=== PATIENT | female | born 1995 | race Caucasian/White ===

== ENCOUNTER → 2020-06-14 10:25 | Outpatient (BNVA) | payer BC, SELFPAY | PROVIDERS: Family Provider Nurse Practitioner; Visit Provider Obstetrics & Gynecology | DX: Z34.90 Encounter for supervision of normal pregnancy, unspecified, unspecified trimester (principal) | CPT/HCPCS: 81025 ==

== ENCOUNTER → 2020-06-21 09:06 | Outpatient (BNVA) | payer BC, SELFPAY | PROVIDERS: Family Provider Nurse Practitioner; Visit Provider Nurse Practitioner Women's Health | DX: O09.291 Supervision of pregnancy with other poor reproductive or obstetric history, first trimester (principal) | CPT/HCPCS: 84315; 84702 ==

== ENCOUNTER → 2020-07-31 14:29 | Outpatient (BNVA) | payer BC, SELFPAY | PROVIDERS: Family Provider Nurse Practitioner; Visit Provider Obstetrics & Gynecology | DX: Z34.90 Encounter for supervision of normal pregnancy, unspecified, unspecified trimester (principal) | CPT/HCPCS: 80307; 82950; 84315; 85027; 86592; 86762; 86803; 86850; 86900; 87086; 87340; 87806 ==

== ENCOUNTER → 2020-08-02 09:10 | Outpatient (BNVA) | payer BC, SELFPAY | PROVIDERS: Family Provider Nurse Practitioner; Visit Provider Obstetrics & Gynecology | DX: Z34.80 Encounter for supervision of other normal pregnancy, unspecified trimester (principal) | CPT/HCPCS: 80053; 82570; 84156; 84443 ==

== ENCOUNTER → 2020-08-07 15:35 | Outpatient (BNVA) | payer BC, SELFPAY | PROVIDERS: Family Provider Nurse Practitioner; Visit Provider Obstetrics & Gynecology | DX: O09.291 Supervision of pregnancy with other poor reproductive or obstetric history, first trimester (principal); Z3A.00 Weeks of gestation of pregnancy not specified | CPT/HCPCS: 84315; 87491; 87591; 88175 ==

== ENCOUNTER → 2020-09-01 08:11 | Outpatient (BNVA) | payer BC, SELFPAY | PROVIDERS: Family Provider Nurse Practitioner; Visit Provider Nurse Practitioner Women's Health | DX: O99.212 Obesity complicating pregnancy, second trimester (principal); O09.291 Supervision of pregnancy with other poor reproductive or obstetric history, first trimester; O09.299 Supervision of pregnancy with other poor reproductive or obstetric history, unspecified trimester | CPT/HCPCS: 84156; 84315 ==

== ENCOUNTER → 2020-11-27 13:06 | Outpatient (BNVA) | payer BC, SELFPAY | PROVIDERS: Family Provider Nurse Practitioner; Visit Provider Obstetrics & Gynecology | DX: Z34.90 Encounter for supervision of normal pregnancy, unspecified, unspecified trimester (principal) | CPT/HCPCS: 82950; 84315; 85025 ==

== ENCOUNTER → 2020-11-30 08:05 | Outpatient (BNVA) | payer BC, SELFPAY | PROVIDERS: Family Provider Nurse Practitioner; Visit Provider Obstetrics & Gynecology | DX: Z34.80 Encounter for supervision of other normal pregnancy, unspecified trimester (principal) | CPT/HCPCS: 82951; 82952 ==

== ENCOUNTER → 2020-12-27 09:32 | Outpatient (BNVA) | payer MEDICAID, SELFPAY | PROVIDERS: Family Provider Nurse Practitioner; Visit Provider Obstetrics & Gynecology | DX: Z34.80 Encounter for supervision of other normal pregnancy, unspecified trimester (principal) | CPT/HCPCS: 81000 ==

== ENCOUNTER → 2021-01-09 14:15 | Outpatient (BNVA) | payer MEDICAID, SELFPAY | PROVIDERS: Family Provider Nurse Practitioner; Visit Provider Nurse Practitioner Women's Health | DX: Z34.80 Encounter for supervision of other normal pregnancy, unspecified trimester (principal) | CPT/HCPCS: 81000 ==

== ENCOUNTER → 2021-01-22 10:19 | Outpatient (BNVA) | payer MEDICAID, SELFPAY | PROVIDERS: Family Provider Nurse Practitioner; Visit Provider Obstetrics & Gynecology | DX: Z34.80 Encounter for supervision of other normal pregnancy, unspecified trimester (principal) | CPT/HCPCS: 81000; 87081 ==

== ENCOUNTER 2021-01-28 03:00 | Inpatient (IN) | payer MEDICAID, SELFPAY ==
[2021-01-28] VITALS (77 sets, daily range): BP systolic 103–160; BP diastolic 57–104; PULSE 58–158; RESP 16–17; TEMP 35.5–36.7; O2SAT 98–99; BMI 46.7
[2021-01-28 03:50] LABS: Basophils % 0.2 %; Eosinophils # 0.1 10^3/uL (0.0-0.8); Eosinophils % 0.6 %; Hemoglobin 11.9 g/dL (11.5-15.3); Lymphocytes # 3.3 10^3/uL (0.8-4.8); Lymphocytes % 23.7 %; Mean Corpuscular HGB Conc 33.1 g/dL (30.0-36.0); Mean Corpuscular Hemoglobin 29.5 pg (28.0-34.0); Mean Corpuscular Volume 89.3 fl (81-99); Mean Platelet Volume 10.4 fL (7.4-10.4); Monocytes % 6.9 %; Neutrophils # 9.43 10^3/uL (1.8-7.7); Neutrophils % 67.8 %; Nucleated Red Blood Cells % 0 %; Platelet Count 251 10^3/cmm (130-400); Red Blood Count 4.03 10^6/uL (4.1-5.3); Red Cell Distribution Width 13.8 % (12.1-15.1); White Blood Count 13.9 10^3/uL (4.0-10.0)
[2021-01-28] MEDS: ampicillin 2,000 MG in sodium chloride 0.9% (plus) 50 ML 100 MG IV (04:00)
[2021-01-28] MEDS: lactated ringers 1,000 ML 125 ML IV (04:00)
[2021-01-28 04:37] LABS: Urine Creatinine 78 mg/dL (28-217); Urine Protein Random 6 mg/dL
[2021-01-28 04:46] LABS: UPRO/UCREAT Ratio 0.08 mg/mg CR
[2021-01-28] MEDS: lactated ringers 1,000 ML 999 ML IV (05:56)
--- NOTE | 2021-01-28 06:13 | ANES.PREANE2 ---
Pre-Anesthetic Assessment Pre-Anesthetic Assessment: Height/Weight: Height 1.68 m Weight 131.542 kg Pulse Resp BP 77 16 124/79 01/28/21 06:03 01/28/21 03:48 01/28/21 06:03 Preop Diagnosis: labor Proposed Procedure: epidural Was Beta Joshua taken within 24 hours: N/A Was Clonidine taken within 24 hours: N/A Last Intake: 17:00 Social: Social History: No alcohol and No tobacco Exam: Pre-Anes Outpt Exam: alert, oriented x 3, clear to auscultation bilaterally and regular rate & rhythm Airway: Submandibular: WNL Cervical ROM: WNL MP: 2 Dentition: Full Pulmonary: Pulmonary: None reported CV/HEM: CV/HEM: None reported : : None reported Hepatic: Hepatic: None reported GI: GI: GERD (with ) Metabolic: Metabolic: Morbid obesity Musc/skel: Musc/skel: None reported Neuropsych: Neuropsych: None reported Anesthetic Plan: ASA status: 2 Anesthesia: Anesthesia Evaluation and Regional (specify below) (epidural) Meds/Allergies Current Medications: Current Medications Generic Name Dose Route Start Last Admin Trade Name Freq PRN Reason Stop Dose Admin Lactated Ringer's 1,000 mls @ 999 m ls/hr 01/28/21 03:33 01/28/21 05:56 Lactated Ringers IV 999 mls/hr .Q1H1M PRN Administration See label comment s Lactated Ringer's 1,000 mls @ 125 m ls/hr 01/28/21 03:45 01/28/21 04:36 Lactated Ringers IV 999 mls/hr .Q8H FABI Infusion PFSH Anesthesia PFSH: Medical History No pertinent past medical history Denies diabetes, asthma, hypertension, seizures, DVT/PE PMD: none Surgical History History of ear surgery Had tubes placed in her years at the age of 9. Family History Mother Breast cancer dx age 40--Estrogen receptor positive. She does not know of her mother was tested for BRCA. She understands the importance of her getting screening starting at the age of 30. Thyroid disease Diabetes Hypertension Family/Other Colon cancer Paternal Aunt-- dx age 40 Father Hypertension Denies family history of Ovarian cancer Heart disease Hypercholesteremia Uterine cancer Stroke Female Reproductive History: : 2 Data Anesthesia CBC & Chem 7: 01/28/21 03:30 Other Labs: Laboratory Results - last 48 hr 01/28/21 01/28/21 03:30 04:00 WBC 13.9 H RBC 4.03 L Hgb 11.9 Hct 36.0 L MCV 89.3 MCH 29.5 MCHC 33.1 RDW 13.8 Plt Count 251 MPV 10.4 Neut % (Auto) 67.8 Lymph % (Auto) 23.7 [place] % (Auto) 6.9 Eos % (Auto) 0.6 Baso % (Auto) 0.2 Neut # (Auto) 9.43 H Lymph # (Auto) 3.3 [place] # (Auto) 1.0 H Eos # (Auto) 0.1 Baso # (Auto) 0.0 Nucleated RBC % (auto) 0 Nucleated RBCs # 0.0 U Random Total Protein 6 Urine Creatinine 78 Protein/Creatinin Ratio 0.08 Cardiac Studies: No Data to Display
--- NOTE | 2021-01-28 06:57 | ANES.PROC ---
Anesthesia Procedures Procedure/Date: 01/28/21 Epidural: Time Out Performed: Yes Consents Signed: Procedure Consent Consent: requested by attending/covering physician, from patient, risks and benefits reviewed (consent signed) and patient agrees to proceed Lumbar Level: L4-L5 Epidural position: sitting Epidural procedure: sterile prep of area (betadine), 1% lidocaine to numb the area (3), 18 g needle, neg for paresthesia, test dose given, 1.5% xylocaine 1:200k epi (3ml/2ml), 0.2% Ropivacaine bolus ml (5ml), placed PCEA, no systemic response, sterile dressing applied, L.U.D. no apparent complications and 0.2% Ropiavacaine @ mls/hr (13ml/hr)
[2021-01-28] MEDS: ampicillin 1,000 MG in sodium chloride 0.9% (plus) 50 ML 100 MG IV (07:49)
[2021-01-28] MEDS: oxytocin 30 UNIT/500 ML BAG IV (08:30)
--- NOTE | 2021-01-28 10:25 | P.PCNOB_ITS ---
Delivery Note: Date of delivery: January 28, 2021 - PRE-DELIVERY DIAGNOSIS: 25-year-old 2 para 1-0-0-1 at 37 weeks and 3 days gestation SROM, active labor GERD on medication Anxiety and depression on 40 mg of fluoxetine History of preeclampsia-on aspirin 81 mg Obesity with a BMI of 46 POST-DELIVERY DIAGNOSIS: Vaginal delivery on 01/28/2021 PROCEDURE: Vaginal delivery on 01/28/2021 ANESTHESIA: Epidural anesthesia DELIVERING PHYSICIAN: Pop Messina FACOG PRE-DELIVERY COURSE: Ms. Mejia is a 25-year-old 2 para 1-0-0-1 at 37 weeks and 3 days who presented to labor and delivery at 3:30 AM with reports of spontaneous rupture of membranes that occurred at home at 2 AM. Clear fluid. On initial examina tion she was noted to be 475 and -4 station, cephalic with a category 1 tracing and irregular contractions. She was observed for period of 4 hours and made slow cervical change to 6 cm. She was uncomfortable and an epidural was placed. After the epidural contractions spaced out to every 6 to 8 minutes and she made no further cervical change and she was started on Pitocin titrated to a maximum of 2 mIU. That she started to make rapid cervical change and had descent of head along with position changes and was 6 cm at 9 AM and fully dilated at 9:22 AM on 01/28/2021. She was set up in lithotomy position ready to push. tracing had been category 1 thus far. DELIVERY NOTE: She was set up in lithotomy position and was pushing effectively. She was noted to be +3 station and continued pushing well. The head delivered in MIKEY position, no nuchal cord was present. The shoulders and rest of the body followed with her next push. The baby's mouth and nose were suctioned and the baby was placed on the mother's belly. Once cord pulsations stopped the cord was clamped and cut. The placenta delivered spontaneously intact with membranes and was discarded. The fundus was noted to be firm and well contracted. Manual exploration of the uterus revealed possible septum measuring less than 1 cm versus just endometrium. The vagina and cervix were inspected and no cervical or sulcal lacerations were noted. The perineum was intact except for a first- degree perineal laceration which was repaired with 3-0 Vicryl in a continuous interlocking fashion. Good hemostasis and reapproximation was obtained. Baby boy, Catrachito born at 9:40 AM on 01/28/2021 with 7/9, weighing 7 pounds 9 ounces, 3420 g, 20-1/2 inches long. Placenta was delivered spontaneously intact with membranes at 9:47 AM.. Cotyledons were intact , centrally inserted umbilical cord with 3 vessels noted. Estimated blood loss 200 mL. Complications-none, both baby and mother were left recover in a stable condition. This documentation was created by [employer] cork grinder software (known for inherent cork grinder error). Every effort was made to assure accuracy of cork grinder. Any obvious errors or omissions should be clarified with the author of the document. Coding Level of Care Code Acute Film Replacement Orderer for Steveg Tammy History History History 2 Term 1 Miscarriages/Ectopic 0 1 Living Children 2 Other History: x 2 1--> 11/07/2018, male,(Junito) , 7 lbs 1 ozs, 36 4/7 wks, epidural, induction of labor for pre-eclampsia with severe features, delivered by Dr Maier at [facility], [place], [place]. was complicated by gestational hypertension which progressed to preeclampsia with severe features requiring induction at 36 weeks. She received magnesium sulfate for 24 hours 2--> 01/28/2021, male(Catrachito), 7 pounds 9 ounces, 37 weeks and 3 days, epidural, SROM and labor delivered by Dr. Messina at [facility] [place]. First-degree perineal tear.
--- NOTE | 2021-01-28 10:25 | PM.OPHPUD ---
Labor & Delivery H&P Update Date of Procedure: January 28, 2021 Date H&P Performed: 01/22/21 H&P update information: I have reviewed H&P completed within last 30 days, I have examined patient prior to procedure, Changes to prior documentation as noted here and H&P is in [facility] [place] [place] EMR on date indicated Changes to previous documentation: SROM in labor Admission Diagnosis: Preop diagnosis: labor
[2021-01-28] MEDS: benzocaine-menthol 78 gm Canister 1 SPRAY TOPICAL (11:09)
[2021-01-28] MEDS: lanolin oint 7 gm 1 APPLIC TOPICAL (11:09)
[2021-01-28] MEDS: ibuprofen 800 mg tablet PO ×2 (17:05→20:52)
[2021-01-28] MEDS: docusate sodium 100 mg Capsule PO (17:05)
[2021-01-28 22:19] LABS: Hematocrit 37.8 % (37.0-47.0); Hemoglobin 12.1 g/dL (11.5-15.3); Mean Corpuscular Hemoglobin 29.7 pg (28.0-34.0); Mean Corpuscular Volume 92.9 fl (81-99); Mean Platelet Volume 10.5 fL (7.4-10.4); Platelet Count 261 10^3/cmm (130-400); Red Blood Count 4.07 10^6/uL (4.1-5.3); Red Cell Distribution Width 14.3 % (12.1-15.1); White Blood Count 17.4 10^3/uL (4.0-10.0)
[2021-01-29] VITALS: BP 114/73; PULSE 82
--- NOTE | 2021-01-29 06:10 | P.DS_ITS ---
Discharge Providers POWER BENDER OPERATOR Date of Admission: 01/28/21 03:00 Date of Discharge: 01/29/21 Attending Provider at Admission: Pop Ledesma MD Attending Provider at Discharge: Pop Ledesma MD PRE-DELIVERY DIAGNOSIS: 25-year-old 2 para 1-0-0-1 at 37 weeks and 3 days gestation SROM, active labor GERD on medication Anxiety and depression on 40 mg of fluoxetine History of preeclampsia-on aspirin 81 mg Obesity with a BMI of 46 POST-DELIVERY DIAGNOSIS: Vaginal delivery on 01/28/2021 PROCEDURE: Vaginal delivery on 01/28/2021 ANESTHESIA: Epidural anesthesia DELIVERING PHYSICIAN: Pop Messina FACOG PRE-DELIVERY COURSE: Ms. Mejia is a 25-year-old 2 para 1-0-0-1 at 37 weeks and 3 days who presented to labor and delivery at 3:30 AM with reports of spontaneous rupture of membranes that occurred at home at 2 AM. Clear fluid. On initial examination she was noted to be 475 and -4 station, cephalic with a category 1 tracing and irregular contractions. She was observed for period of 4 hours and made slow cervical change to 6 cm. She was uncomfortable and an epidural was placed. After the epidural contractions spaced out to every 6 to 8 minutes and she made no further cervical change and she was started on Pitocin titrated to a maximum of 2 mIU. That she started to make rapid cervical change and had descent of head along with position changes and was 6 cm at 9 AM and fully dilated at 9:22 AM on 01/28/2021. She was set up in lithotomy position ready to push. tracing had been category 1 thus far. DELIVERY NOTE: She was set up in lithotomy position and was pushing effectively. She was noted to be +3 station and continued pushing well. The head delivered in MIKEY position, no nuchal cord was present. The shoulders and rest of the body followed with her next push. The baby's mouth and nose were suctioned and the baby was placed on the mother's belly. Once cord pulsations stopped the cord was clamped and cut. The placenta delivered spontaneously intact with membranes and was discarded. The fundus was noted to be firm and well contracted. Manual exploration of the uterus revealed possible septum measuring less than 1 cm versus just endometrium. The vagina and cervix were inspected and no cervical or sulcal lacerations were noted. The perineum was intact except for a first- degree perineal laceration which was repaired with 3-0 Vicryl in a continuous interlocking fashion. Good hemostasis and reapproximation was obtained. Baby boy, Catrachito born at 9:40 AM on 01/28/2021 with 7/9, weighing 7 pounds 9 ounces, 3420 g, 20-1/2 inches long. Placenta was delivered spontaneously intact with membranes at 9:47 AM.. Cotyledons were intact , centrally inserted umbilical cord with 3 vessels noted. Estimated blood loss 200 mL. Complications-none, both baby and mother were left recover in a stable condition. HOSPITAL COURSE: She underwent an uncomplicated vaginal delivery on 01/28/2021. She did well on day 0 and was ambulating well, tolerating regular diet, voiding freely, passing flatus. She was breast-feeding without difficulty and bonding well with her son. Circumcision was performed on him on day of life 1 per her request. Pain was well-controlled with by mouth pain medication. She denied nausea, vomiting, fever, chills, shortness of breath, leg pain. She had moderate vaginal bleeding. On day #1 she continued to do well with stable vital signs and stable hemoglobin at 12.1. She had only occasional blood pressure elevations when she was in pain. Protein creatinine ratio was normal prior to delivery. She was discharged home on day 1 in a stable condition, as she desired early discharge. Warning signs for endometritis, mastitis, DVT/PE were reviewed with her. Post delivery activity restrictions were also reviewed with her at all her questions were answered to her satisfaction. She plans on using the Mirena for contraception which will be inserted at 7 weeks . She will monitor blood pressure at home for the first 1 week. Risks of preeclampsia and warning signs reviewed with patient. EXAM AT DISCHARGE: Gen.: No acute distress Heart: S1-S2 heard, regular rate and rhythm Lungs: Clear to auscultation bilaterally Abdomen: Soft, fundus firm below umbilicus, Legs: No calf tenderness, +1 bilateral pitting pedal edema. CONDITION AT DISCHARGE: Stable This documentation was created by [employer] safety security officer software (known for inherent safety security officer error). Every effort was made to assure accuracy of safety security officer. Any obvious errors or omissions should be clarified with the author of the document. Reason for Visit Reason for Visit: RUPTURE OF MEMBRANES Information Peripartum Data: Delivery Method: Vaginal Physical Exam Urinary Catheter Management^: [place]: Cath Placed During This Visit: yes Reason for Continuing Indwelling Catheter: Other Urinary Catheter Date of Insertion: 01/28/21 Urinary Catheter Time of Insertion: 07:00 Discharge Data Data Completed and Pending: Labs from last 24 hours 01/28/21 21:40 WBC 17.4 H RBC 4.07 L Hgb 12.1 Hct 37.8 MCV 92.9 MCH 29.7 MCHC 32.0 RDW 14.3 Plt Count 261 MPV 10.5 H Vitals: Last Vital Signs Temp 97.0 F L 01/28/21 17:50 Pulse 82 01/29/21 00:00 Resp 17 01/28/21 10:42 BP 114/73 01/29/21 00:00 Pulse Ox 99 01/28/21 07:27 Discharge Plan Discharge Patient Disposition: Home Condition: Stable Prescriptions: New docusate sodium 100 mg Capsule 100 mg PO BID PRN (Reason: constipation) Qty: 30 RF: 0 ibuprofen 800 mg tablet 800 mg PO Q8H Qty: 30 RF: 0 Continued fluoxetine [Prozac] 40 mg capsule 40 mg PO DAILY Qty: 60 RF: 1 prenat.vits,chema,[id number] Tablet 1 tab PO DAILY RF: 0 omeprazole 20 mg capsule,delayed release(DR/EC) 20 mg PO DAILY RF: 0 Discontinued acetaminophen [Tylenol Extra Strength] 500 mg tablet 1,000 mg PO Q6H PRN (Reason: Pain) RF: 0 aspirin [Adult Aspirin Regimen] 81 mg tablet,delayed release (DR/EC) 81 mg PO DAILY RF: 0 fluconazole [Diflucan] 150 mg tablet 150 mg PO DAILY Qty: 1 RF: 0 Discharge Orders: Discharge Order (Routine); Ordered 01/29/21 Ordered By: Pop Ledesma Referrals: Pop Ledesma MD [Physician] - Discharge Diet: Regular Discharge Activity: Limit activity as instructed Patient Instructions: Opioid Safety Activity Restrictions/Additional Instructions: Pelvic rest for 6 weeks, no heavy lifting more than 10 pounds for 6 weeks. 6- week visit in 7-week IUD insertion visit with Dr. Messina Discharge Attestations POWER BENDER OPERATOR Time Spent in Discharge Care*: greater than 30 min Coding Level of Care Code Acute Stem Teacher for Zahida Munoz
[2021-01-29] MEDS: ibuprofen 800 mg tablet PO (09:47)
[2021-01-29] MEDS: docusate sodium 100 mg Capsule PO (09:47)
[2021-01-29] MEDS: prenatal vitamin Capsule 1 CAP PO (09:47)
[2021-01-29 12:04] VITALS: TEMP 36.5
[2021-01-29 12:05] VITALS: BP 145/83; PULSE 84
[2021-01-29 13:12] VITALS: BP 145/83; PULSE 84; RESP 17; TEMP 36.2
--- NOTE | 2021-01-29 15:22 | ANE.PACU2 ---
Inpatient post-anesthesia follow up: Airway intact: Yes Vital signs: Temperature 97.1 F Pulse Rate 84 Respiratory Rate 17 Blood Pressure 145/83 Pulse Oximetry 99 Oxygen Delivery Me thod Room Air Oxygen Flow Rate Fraction of Inspir ed Oxygen Hydration adequate: Yes Nausea and vomiting: No Pain level: 1 Mental status: Baseline
== END 2021-01-29 12:20 | disposition home or self-care (01) | DRG 807 ==
PROVIDERS: Admitting Provider Obstetrics & Gynecology; Visit Provider Obstetrics & Gynecology
DX: O99.214 Obesity complicating childbirth (principal); Z37.0 Single live birth; O99.344 Other mental disorders complicating childbirth; F41.8 Other specified anxiety disorders; O36.63X0 Maternal care for excessive fetal growth, third trimester, not applicable or unspecified; O70.0 First degree perineal laceration during delivery; Z3A.37 37 weeks gestation of pregnancy; O75.89 Other specified complications of labor and delivery; B37.3 Candidiasis of vulva and vagina; K21.9 Gastro-esophageal reflux disease without esophagitis; Z79.82 Long term (current) use of aspirin
CPT/HCPCS: 36415; 51702; 59025; 59409; 82570; 83986; 84156; 85025; 85027; 99211; J0290; J2795

== ENCOUNTER → 2021-03-19 10:41 | Outpatient (BNVA) | payer MEDICAID, SELFPAY | PROVIDERS: Visit Provider Obstetrics & Gynecology | DX: Z30.9 Encounter for contraceptive management, unspecified (principal) | CPT/HCPCS: 81025 ==

== ENCOUNTER → 2022-07-16 10:16 | Outpatient (BNVA) | payer BC, MEDICAID, SELFPAY | PROVIDERS: Visit Provider Nurse Practitioner | DX: N39.0 Urinary tract infection, site not specified (principal); F41.9 Anxiety disorder, unspecified; F32.9 Major depressive disorder, single episode, unspecified | CPT/HCPCS: 81000 ==